=== PATIENT | female | born 2000 | race Caucasian/White ===

== ENCOUNTER → 2021-07-20 | Outpatient (CLI) | payer BC | LOC: CATH 09:27 | DX: R55 Syncope and collapse (principal); R60.0 Localized edema; E78.49 Other hyperlipidemia; I48.0 Paroxysmal atrial fibrillation; I25.5 Ischemic cardiomyopathy; R07.9 Chest pain, unspecified; I11.0 Hypertensive heart disease with heart failure; I50.9 Heart failure, unspecified ==

== ENCOUNTER → 2021-07-24 | Outpatient (CLI) | payer BC ==
[2021-07-24 16:56] LABS: BUN/CREATININE RATIO 13 (0-10)
== END ==
LOC: LAB 15:50
PROVIDERS: Nurse Practitioner Family
DX: I11.0 Hypertensive heart disease with heart failure (principal); I50.9 Heart failure, unspecified; R07.9 Chest pain, unspecified; I25.5 Ischemic cardiomyopathy; R06.02 Shortness of breath; R55 Syncope and collapse; I47.9 Paroxysmal tachycardia, unspecified; R00.2 Palpitations; R60.0 Localized edema; E78.49 Other hyperlipidemia; I48.0 Paroxysmal atrial fibrillation
CPT/HCPCS: 80069; 84436; 84443